=== PATIENT | male | born 1985 | race African-American/Black ===

== ENCOUNTER 2018-09-25 11:44 | Observation (INO) | payer OTHER, SELFPAY ==
[2018-09-25] MEDS ORDERED: ONDANSETRON 4 MG/2 ML VIAL ONE ×2 (12:20→13:27)
[2018-09-25] MEDS ORDERED: FAMOTIDINE 20 MG/2 ML VIAL IV ONE (12:20)
[2018-09-25] MEDS ORDERED: NA CHLORIDE 0.9% 1,000 ML ONE (12:20)
[2018-09-25 12:27] LABS: Absolute Lymphocytes (CBC) 4.3 K/uL (0.7-4.9); Absolute Neutrophil 6.3 K/uL (1.8-8.0); Hematocrit 41.8 % (39.6-49.0); Lymphocytes % 35.7 % (15.3-44.8); MPV 8.8 fL (7.6-11.3); Monocytes % 8.6 % (3.3-12.3); RBC Red Blood Cell Count 4.84 M/uL (4.33-5.43)
[2018-09-25 12:31] LABS: Protime INR 0.97
--- NOTE | 2018-09-25 12:40 | RAD REPORT ---
EXAM DESCRIPTION: RAD - Chest Single View - 09/25/2018 12:35 pm CLINICAL HISTORY: CHEST PAIN Chest pain. COMPARISON: No comparisons FINDINGS: Portable technique limits examination quality. The lungs are grossly clear. The heart is normal in size. No displaced fractures. IMPRESSION: No acute intrathoracic process suspected.
[2018-09-25 12:49] LABS: ALT/SGPT 65 U/L (12-78); AST/SGOT 37 U/L (15-37); Alkaline Phosphatase 73 U/L (45-117); BUN Blood Urea Nitrogen 19 mg/dL (7-18); Bicarbonate 26 mmol/L (21-32); Bilirubin Direct 0.1 mg/dL (0-0.2); Bilirubin Total 0.4 mg/dL (0.2-1.0); Glucose Level 99 mg/dL (74-106); Lipase 132 U/L (73-393); Magnesium 2.3 mg/dL (1.8-2.4); NT PRO-BNP 15 pg/mL (<125); Potassium 3.9 mmol/L (3.5-5.1); Protein, Total 8.2 g/dL (6.4-8.2); Sodium Level 137 mmol/L (136-145); Troponin (Emerg Dept Use Only) 0.03 ng/mL (0.0-0.045)
[2018-09-25] MEDS ORDERED: LIDOCAINE VISCOUS 2% SOLN 15 ML UDC ONE (13:07)
[2018-09-25] MEDS ORDERED: MAGNE/ALUM HYDROXD 30 ML UCUP ONE (13:07)
--- NOTE | 2018-09-25 13:24 | EKG ---
Test Date: 2018-09-25 Test Time: 12:09:03 Social Work Job Titles: HELENA MEASUREMENT RESULTS: Intervals: Rate: 70 CA: 158 QRSD: 100 QT: 380 QTc: 410 Urania: P: 20 CA: 158 QRS: 75 T: 18 INTERPRETIVE STATEMENTS: Normal sinus rhythm Nonspecific T wave abnormality Abnormal ECG No previous ECG available for comparison Electronically Signed On 09-25-18 13:23:53 DEVELOPMENT EXECUTIVE by Quincy Cervantes
[2018-09-25] MEDS ORDERED: MORPHINE 4 MG/ML SYR ONE ×2 (13:27→14:41)
[2018-09-25 14:50] LABS: Urine Blood NEGATIVE (NEG); Urine Glucose NEGATIVE (NEG); Urine Protein NEGATIVE (NEG); Urine pH 5.5 (5.0-7.0)
[2018-09-25 15:37] LABS: Barbiturates NEGATIVE (NEGATIVE); Benzodiazepines NEGATIVE (NEGATIVE); Cocaine NEGATIVE (NEGATIVE); METHAMPHETAM NEGATIVE (NEGATIVE); Methadone NEGATIVE (NEGATIVE); Opiates NEGATIVE (NEGATIVE); Phencyclidine NEGATIVE (NEGATIVE); THC Cannibis NEGATIVE (NEGATIVE)
--- NOTE | 2018-09-25 15:42 | RAD REPORT ---
EXAM DESCRIPTION: CTAbdomen Pelvis W Contrast - 09/25/2018 3:36 pm CLINICAL HISTORY: Abdominal pain. ABD PAIN COMPARISON: No comparisons TECHNIQUE: Biphasic CT imaging of the abdomen and pelvis was performed with 100 ml non-ionic IV cont rast. All CT scans are performed using dose optimization technique as appropriate and may include automated exposure control or mA/KV adjustment according to patient size. FINDINGS: The lung bases are clear. The liver, spleen, pancreas, adrenal glands and kidneys are within normal limits. No bowel obstruction, free air, free fluid or abscess. The appendix is dilated to 20 mm and contains multiple appendicoliths and fluid. Mild periappendiceal fat stranding also seen. No evidence of sig nificant lymphadenopathy. No suspicious bony findings. IMPRESSION: Acute appendicitis.
[2018-09-25] MEDS ORDERED: HYDROMORPHONE HCL 1 MG/ML INJ ONE (16:01)
[2018-09-25] MEDS ORDERED: PROMETHAZINE 25 MG/ML VIAL ONE (16:01)
--- NOTE | 2018-09-25 16:14 | EDPHYS ---
Physician Documentation [facility] Name: Isai De Dios Age: 33 yrs Sex: Male : 1985 Arrival Date: 09/25/2018 Time: 11:48 Bed 19 Private MD: ED Physician Lon Robertson HPI: 09/25 12:10 This 33 yrs old Black Male presents to ER via Ambulatory with complaints of Chest Pain, cp Abdominal Pain. 12:10 The patient or guardian reports chest pain that is located primarily in the anterior cp chest wall. 12:10 The pain does not radiate. cp 12:10 The patient presents with abdominal pain in the periumbilical area. cp 12:10 Onset: The symptoms/episode began/occurred this morning. Associated signs and symptoms: cp Pertinent positives: nausea and vomiting, Pertinent negatives: blood in stools, constipation, diarrhea, fever, testicular pain. The chest pain is described as constant. Duration: The patient or guardian reports a single episode, that is still ongoing, and worsening. Historical: - Allergies: 12:04 No Known Allergies; jl7 - Home Meds: 12:04 Vitamins [Active]; jl7 - PMHx: 12:04 None; jl7 - PSHx: 12:04 None; jl7 - Immunization history:: Adult Immunizations not up to date. - Social history:: Smoking status: Patient/guardian denies using tobacco, but has a distant history of tobacco abuse. - Ebola Screening: : No symptoms or risks identified at this time. ROS: 12:15 Constitutional: Negative for body aches, chills, fever, poor PO intake. cp 12:15 Eyes: Negative for injury, pain, redness, and discharge. cp 12:15 Cardiovascular: Positive for chest pain, Negative for edema, palpitations. 12:15 Respiratory: Negative for cough, shortness of breath, wheezing. 12:15 Abdomen/GI: Positive for abdominal pain, nausea and vomiting, Negative for diarrhea, constipation, hematemesis, black/tarry stool, rectal bleeding. 12:15 Back: Negative for pain at rest, pain with movement, radiated pain. 12:15 : Negative for urinary symptoms, flank pain, testicular pain 12:15 Skin: Negative for cellulitis, rash. 12:15 Neuro: Negative for altered mental status, headache, weakness. 12:15 All other systems are negative. Exam: 12:20 ECG was reviewed by the Attending Physician. cp 12:20 Constitutional: The patient appears alert, awake, non-toxic, well developed, well cp nourished, uncomfortable. 12:20 Head/Face: Normocephalic, atraumatic. Eyes: Pupils equal round and reactive to light, cp extra-ocular motions intact. Lids and lashes normal. Conjunctiva and sclera are non-icteric and not injected. Cornea within normal limits. Periorbital areas with no swelling, redness, or edema. ENT: Nares patent. No nasal discharge, no septal abnormalities noted. Tympanic membranes are normal and external auditory canals are clear. Oropharynx with no redness, swelling, or masses, exudates, or evidence of obstruction, uvula midline. Mucous membranes moist. Chest/axilla: Normal chest wall appearance and motion. Nontender with no deformity. No lesions are appreciated. Cardiovascular: Regular rate and rhythm with a normal S1 and S2. No gallops, murmurs, or rubs. Normal PMI, no JVD. No pulse deficits. Respiratory: Lungs have equal breath sounds bilaterally, clear to auscultation and percussion. No rales, rhonchi or wheezes noted. No increased work of breathing, no retractions or nasal flaring. 12:20 Abdomen/GI: Inspection: abdomen appears normal, Bowel sounds: active, all quadrants, Palpation: soft, in all quadrants, moderate abdominal tenderness, in the umbilical area, rebound tenderness, is not appreciated, voluntary guarding, is elicited in the umbilical area. 12:20 Back: pain, is absent, ROM is normal. 12:20 Skin: cellulitis, is not appreciated, no rash present. Vital Signs: 12:04 BP 161 / 99; Pulse 75; Resp 16 S; Pulse Ox 100% on R/A; Weight 120.2 kg (R); Height 5 jl7 ft. 11 in. (180.34 cm) (R); Pain 10/10; 13:06 BP 121 / 77; Pulse 75; Resp 18; Pulse Ox 100% on R/A; hj 13:22 BP 153 / 85; Pulse 72; Resp 18; Pulse Ox 100% on R/A; hj 14:04 BP 156 / 87; Pulse 74; Resp 18; Pulse Ox 100% on R/A; hj 14:38 BP 133 / 75; Pulse 73; Resp 18; Pulse Ox 100% on R/A; hj 15:02 BP 149 / 85; Pulse 65; Resp 18; Pulse Ox 100% on R/A; hj 16:06 BP 135 / 79; Pulse 62; Resp 18; Pulse Ox 100% on 2 lpm NC; hj 17:11 BP 153 / 90; Pulse 66; Resp 18; Pulse Ox 100% on R/A; hj 12:04 Body Mass Index 36.96 (120.20 kg, 180.34 cm) jl7 MDM: 11:53 Patient medically screened. cp 12:30 Differential diagnosis: chest wall pain, esophagitis, pancreatitis, pericarditis, cp pneumonia, appendicitis, bowel obstruction. 15:50 Data reviewed: vital signs, nurses notes, lab test result(s), radiologic studies, CT cp scan, and as a result, I will admit patient. 16:10 Physician consultation: Eduin Mai MD was called at 16:05, was contacted at 16:05, cp regarding admission, to the medical/surgical unit. patient's condition. 09/25 12:09 Order name: Basic Metabolic Panel; Complete Time: 12:55 cp 09/25 12:09 Order name: CBC with Diff; Complete Time: 12:55 cp 09/25 12:09 Order name: LFT's; Complete Time: 12:55 cp 09/25 12:09 Order name: Magnesium; Complete Time: 12:55 cp 09/25 12:09 Order name: NT PRO-BNP; Complete Time: 12:55 cp 09/25 12:09 Order name: PT-INR; Complete Time: 12:55 cp 09/25 12:09 Order name: Troponin (emerg Dept Use Only); Complete Time: 12:55 cp 09/25 12:09 Order name: Lipase; Complete Time: 12:55 cp 09/25 12:14 Order name: UDS; Complete Time: 15:46 cp 09/25 14:33 Order name: Urine Dipstick--Ancillary (enter results); Complete Time: 15:46 bd 09/25 16:50 Order name: Basic Metabolic Panel EDMS 09/25 16:50 Order name: Basic Metabolic Panel EDMS 09/25 16:50 Order name: CBC with Automated Diff EDMS 09/25 16:50 Order name: CBC with Automated Diff EDMS 09/25 12:09 Order name: XRAY Chest (1 view); Complete Time: 12:55 cp 09/25 12:56 Order name: CT Abd/Pelvis - W/Contrast: no oral contrast; Complete Time: 15:46 cp 09/25 16:50 Order name: Lipase EDMS 09/25 16:50 Order name: Lipase EDMS 09/25 16:50 Order name: Liver (Hepatic) Function EDMS 09/25 16:50 Order name: Liver (Hepatic) Function EDMS 09/25 12:09 Order name: EKG; Complete Time: 12:11 cp 09/25 12:09 Order name: Cardiac monitoring; Complete Time: 12:14 cp 09/25 12:09 Order name: EKG - Nurse/Tech; Complete Time: 12:14 cp 09/25 12:09 Order name: IV Saline Lock; Complete Time: 12:14 cp 09/25 12:09 Order name: Labs collected and sent; Complete Time: 12:14 cp 09/25 12:09 Order name: O2 Per Protocol; Complete Time: 12:14 cp 09/25 12:09 Order name: O2 Sat Monitoring; Complete Time: 12:14 cp 09/25 15:47 Order name: NPO; Complete Time: 15:49 cp 09/25 16:50 Order name: NPO EDAZ EC:20 Rate is 70 beats/min. Rhythm is regular. LA interval is normal. QRS interval is normal. cp QT interval is normal. Interpreted by me. Reviewed by me. Administered Medications: 12:09 Drug: Pepcid 20 mg Route: IVP; Site: left antecubital; hj 13:01 Follow up: Response: No adverse reaction hj 12:09 Drug: Zofran 4 mg Route: IVP; Site: left antecubital; hj 13:01 Follow up: Response: No adverse reaction hj 12:09 Drug: NS 0.9% 1000 ml Route: IV; Rate: 1 bolus; Site: left antecubital; hj 13:30 Follow up: IV Status: Completed infusion; IV Intake: 1000ml hj 12:56 Drug: GI Cocktail without - (Maalox Suspension 30 ml, Lidocaine Liquid 2 % 15 hj ml) Route: PO; 13:01 Follow up: Response: No adverse reaction hj 13:15 Drug: morphine 4 mg Route: IVP; Site: left antecubital; hj 13:23 Follow up: Response: No adverse reaction; Pain is decreased hj 13:15 Drug: Zofran 4 mg Route: IVP; Site: left antecubital; hj 13:23 Follow up: Response: No adverse reaction hj 14:33 Drug: morphine 4 mg Route: IVP; Site: left antecubital; hj 14:34 Follow up: Response: No adverse reaction hj 15:47 Drug: Dilaudid 1 mg Route: IVP; Site: left antecubital; hj 16:06 Follow up: Response: No adverse reaction hj 15:50 Not Given (Physician Discretion): Phenergan 12.5 mg IVP once cp 15:50 Drug: Phenergan 25 mg Route: IVP; Site: left antecubital; hj 16:06 Follow up: Response: No adverse reaction hj 16:12 Drug: Zosyn 3.375 grams Route: IVPB; Infused Over: 60 mins; Site: left antecubital; hj 16:18 Follow up: IV Status: Completed infusion hj Disposition: 18:15 Co-signature as Attending Physician, Lon Robertson MD. rn Disposition: 09/25/18 16:13 Hospitalization ordered by Eduin Mai for Inpatient Admission. Preliminary diagnosis is Acute appendicitis. - Bed requested for Telemetry/MedSurg (Inpatient). - Status is Inpatient Admission. hj - Condition is Stable. - Problem is new. - Symptoms have improved. UTI on Admission? No Signatures: Dispatcher [employer] EDMS Lainey Farr Lon Quinteros MD MD rn Joaquin, Henry, RN RN hj Page, Corey, PA PA cp Leal, Jahala, RN RN jl7 Corrections: (The following items were deleted from the chart) 12:13 12:13 This 33 yrs old Black Male presents to ER via Ambulatory with complaints of Chest cp Pain, Abdominal Pain. cp 17:02 16:13 Hospitalization Ordered by Eduin Mai MD for Inpatient Admission. Preliminary bd diagnosis is Acute appendicitis. Bed requested for Telemetry/MedSurg (Inpatient). Status is Inpatient Admission. Condition is Stable. Problem is new. Symptoms have improved. UTI on Admission? No. cp 17:35 17:02 09/25/2018 16:13 Hospitalization Ordered by Eduin Mai MD for Inpatient hj Admission. Preliminary diagnosis is Acute appendicitis. Bed requested for Telemetry/MedSurg (Inpatient). Status is Inpatient Admission. Condition is Stable. Problem is new. Symptoms have improved. UTI on Admission? No. bd
--- NOTE | 2018-09-25 16:14 | ER ---
Nurse's Notes [facility] Name: Isai De Dios Age: 33 yrs Sex: Male : 1985 Arrival Date: 09/25/2018 Time: 11:48 Bed 19 Private MD: Diagnosis: Acute appendicitis Presentation: 09/25 12:00 Presenting complaint: Patient states: "I took a hydroxycut and a one a day at 0300 this jl7 morning, ate lunch then about 20 minutes later my stomach started hurting real bad around my belly button area then my chest started hurting." Pt actively vomiting in triage. Pt reports he always takes the supplements, this has never happened. pt reports he has been around others who have been sick lately. Transition of care: patient was not received from another setting of care. Onset of symptoms was September 25, 2018 at 04:00. Risk Assessment: Do you want to hurt yourself or someone else? Patient reports no desire to harm self or others. Initial Sepsis Screen: Does the patient meet any 2 criteria? No. Patient's initial sepsis screen is negative. Does the patient have a suspected source of infection? No. Patient's initial sepsis screen is negative. Care prior to arrival: None. 12:00 Method Of Arrival: Ambulatory jl7 12:00 Acuity: NILA 3 jl7 Triage Assessment: 12:04 General: Appears in no apparent distress. uncomfortable, Behavior is calm, cooperative, jl7 appropriate for age. Pain: Complains of pain in left breast and umbilical area Pain currently is 10 out of 10 on a pain scale. Quality of pain is described as aching, Pain began suddenly, Is continuous. Neuro: Level of Consciousness is awake, alert, obeys commands. Cardiovascular: Patient's skin is warm and dry. Respiratory: Airway is patent Respiratory effort is even, unlabored, Respiratory pattern is regular, symmetrical. GI: Pt is actively vomiting clear fluid. 12:04 EENT: No signs and/or symptoms were reported regarding the EENT system. : No signs hj and/or symptoms were reported regarding the genitourinary system. Derm: No signs and/or symptoms reported regarding the dermatologic system. Musculoskeletal: No signs and/or symptoms reported regarding the musculoskeletal system. Historical: - Allergies: 12:04 No Known Allergies; jl7 - Home Meds: 12:04 Vitamins [Active]; jl7 - PMHx: 12:04 None; jl7 - PSHx: 12:04 None; jl7 - Immunization history:: Adult Immunizations not up to date. - Social history:: Smoking status: Patient/guardian denies using tobacco, but has a distant history of tobacco abuse. - Ebola Screening: : No symptoms or risks identified at this time. Screenin:07 Abuse screen: Denies threats or abuse. Denies injuries from another. Nutritional hj screening: No deficits noted. Tuberculosis screening: No symptoms or risk factors identified. Fall Risk None identified. Assessment: 12:08 Pain: Pain does not radiate. hj 12:55 Reassessment: Patient and/or family updated on plan of care and expected duration. Pain hj level reassessed. Patient is alert, oriented x 3, equal unlabored respirations, skin warm/dry/pink. pt complained of abd pain; 10/10; MD notified; with orders;. 13:23 Reassessment: awaiting CT;. hj 13:25 Reassessment: called imaging; pt finished contrast;. hj 14:03 Reassessment: Patient and/or family updated on plan of care and expected duration. Pain hj level reassessed. Patient is alert, oriented x 3, equal unlabored respirations, skin warm/dry/pink. awaiting CT;. 14:37 Reassessment: Patient and/or family updated on plan of care and expected duration. Pain hj level reassessed. Patient is alert, oriented x 3, equal unlabored respirations, skin warm/dry/pink. still complaining of pain 06/26; MD notified with orders;. Reassessment: called imaging; will picker tender helper pt for CT in 30 mins;. 15:29 Reassessment: wheeled to CT:. hj 15:38 Reassessment: back to room;. hj 16:12 Reassessment: Patient and/or family updated on plan of care and expected duration. Pain hj level reassessed. Dx: appendicitis; awaiting orders from PA;. 17:11 Reassessment: Patient and/or family updated on plan of care and expected duration. Pain hj level reassessed. Patient is alert, oriented x 3, equal unlabored respirations, skin warm/dry/pink. surgeon in room; for surgery but to be placed in the room first;. 17:33 Reassessment: surgery consent signed and attached to chart;. hj Vital Signs: 12:04 BP 161 / 99; Pulse 75; Resp 16 S; Pulse Ox 100% on R/A; Weight 120.2 kg (R); Height 5 jl7 ft. 11 in. (180.34 cm) (R); Pain 10/10; 13:06 BP 121 / 77; Pulse 75; Resp 18; Pulse Ox 100% on R/A; hj 13:22 BP 153 / 85; Pulse 72; Resp 18; Pulse Ox 100% on R/A; hj 14:04 BP 156 / 87; Pulse 74; Resp 18; Pulse Ox 100% on R/A; hj 14:38 BP 133 / 75; Pulse 73; Resp 18; Pulse Ox 100% on R/A; hj 15:02 BP 149 / 85; Pulse 65; Resp 18; Pulse Ox 100% on R/A; hj 16:06 BP 135 / 79; Pulse 62; Resp 18; Pulse Ox 100% on 2 lpm NC; hj 17:11 BP 153 / 90; Pulse 66; Resp 18; Pulse Ox 100% on R/A; hj 12:04 Body Mass Index 36.96 (120.20 kg, 180.34 cm) jl7 ED Course: 11:48 Patient arrived in ED. mr 11:53 Shreyas Tony PA is PHCP. cp 11:53 Lon Robertson MD is Attending Physician. cp 11:58 Eduin Broderick, ODALYS is Primary Nurse. hj 12:03 Triage completed. jl7 12:04 Arm band placed on right wrist. jl7 12:07 Initial lab(s) drawn, by oh, sent to lab. Inserted saline lock: 20 gauge in left hj antecubital area, using aseptic technique. Blood collected. 12:08 Patient has correct armband on for positive identification. Placed in gown. Bed in low hj position. Call light in reach. Side rails up X 1. phototypesetting equipment monitor on. Pulse ox on. NIBP on. 12:08 Patient maintains SpO2 saturation greater than 95% on room air. hj 12:15 EKG done, by cardiology technician. reviewed by Shreyas JEAN-BAPTISTE. at1 12:35 XRAY Chest (1 view) In Process Unspecified. EDMS 14:22 UDS Sent. 5 14:22 Urine collected: clean catch specimen, clear. mh5 15:36 CT Abd/Pelvis - W/Contrast: no oral contrast In Process Unspecified. EDMS 16:13 Eduin Mai MD is Hospitalizing Provider. cp 17:32 No provider procedures requiring assistance completed. Patient admitted, IV remains in hj place. intact. Administered Medications: 12:09 Drug: Pepcid 20 mg Route: IVP; Site: left antecubital; hj 13:01 Follow up: Response: No adverse reaction hj 12:09 Drug: Zofran 4 mg Route: IVP; Site: left antecubital; hj 13:01 Follow up: Response: No adverse reaction hj 12:09 Drug: NS 0.9% 1000 ml Route: IV; Rate: 1 bolus; Site: left antecubital; hj 13:30 Follow up: IV Status: Completed infusion; IV Intake: 1000ml hj 12:56 Drug: GI Cocktail without - (Maalox Suspension 30 ml, Lidocaine Liquid 2 % 15 hj ml) Route: PO; 13:01 Follow up: Response: No adverse reaction hj 13:15 Drug: morphine 4 mg Route: IVP; Site: left antecubital; hj 13:23 Follow up: Response: No adverse reaction; Pain is decreased hj 13:15 Drug: Zofran 4 mg Route: IVP; Site: left antecubital; hj 13:23 Follow up: Response: No adverse reaction hj 14:33 Drug: morphine 4 mg Route: IVP; Site: left antecubital; hj 14:34 Follow up: Response: No adverse reaction hj 15:47 Drug: Dilaudid 1 mg Route: IVP; Site: left antecubital; hj 16:06 Follow up: Response: No adverse reaction hj 15:50 Not Given (Physician Discretion): Phenergan 12.5 mg IVP once cp 15:50 Drug: Phenergan 25 mg Route: IVP; Site: left antecubital; hj 16:06 Follow up: Response: No adverse reaction hj 16:12 Drug: Zosyn 3.375 grams Route: IVPB; Infused Over: 60 mins; Site: left antecubital; hj 16:18 Follow up: IV Status: Completed infusion hj Intake: 13:30 IV: 1000ml; Total: 1000ml. hj Outcome: 16:13 Decision to Hospitalize by Provider. cp 17:32 Admitted to Med/surg accompanied by vanessa via wheelchair, room 218, with chart, Report solo called to ODALYS E[place] 17:32 Condition: stable 17:32 Instructed on the need for admit, Demonstrated understanding of instructions. 17:35 Patient left the ED. solo Signatures: Dispatcher [employer] KATY Cheyenne Wagoner Amanda, second mate EKG Tat1 Eduin Broderick RN RN Shreyas Marte PA PA cp [place] [id number] Franki Gibson RN RN jl7 Corrections: (The following items were deleted from the chart) 14:04 13:23 Reassessment: wheeled to CT; solo banda
[2018-09-25] MEDS ORDERED: PIPER/TAZO/NS 3.375gm 3.375 GM/100 ML BAG ONE (16:24)
[2018-09-25] MEDS ORDERED: HYDROMORPHONE HCL 1 MG/ML INJ IV PRN (16:47)
[2018-09-25] MEDS ORDERED: ONDANSETRON 4 MG/2 ML VIAL IV PRN (16:47)
[2018-09-25] MEDS ORDERED: ACETAMINOPHEN 500 MG TAB PO PRN (16:47)
[2018-09-25] MEDS: D5 0.45 NS 1,000 ML IV SCH (17:00)
[2018-09-25] MEDS: FENTANYL CITR 100 MCG/2 ML ONE ×4 (17:50→20:13)
[2018-09-25] MEDS ORDERED: Ringers Lactate 1,000 ML IV ONE ×2 (17:53→21:15)
[2018-09-25] MEDS: PIPER/TAZO/NS 3.375gm 3.375 GM/100 ML BAG IVPB SCH (18:30)
[2018-09-25] MEDS ORDERED: BUPIVACAINE 0.5% PF 10 ML VIAL ONE (20:24)
[2018-09-25] MEDS ORDERED: SUCCINYLCHOLINE 20 MG/ML (10 ML) IV ONE (20:25)
[2018-09-25] MEDS ORDERED: ROCURONIUM 50 MG/5 ML VIAL IV ONE (20:30)
[2018-09-25] MEDS ORDERED: FENTANYL CITR 250 MCG/5 ML ONE (20:30)
[2018-09-25] MEDS ORDERED: PROPOFOL 200 MG/20 ML VIAL IV ONE (20:30)
[2018-09-25] MEDS ORDERED: GLYCOPYRROLATE 0.2 MG/ML SYR ONE ×2 (20:54)
[2018-09-25] MEDS ORDERED: NEOSTIGMINE 1 MG/ML -5 ML SYRINGE ONE (21:14)
--- NOTE | 2018-09-25 21:23 | P.BOP ---
Preoperative diagnosis: acute appendicitis Postoperative diagnosis: same Primary procedure: Laparoscopic appendectomy Estimated blood loss: <10cc Specimen: [email or web address] Findings: as above Anesthesia: General Complications: None Transferred to: Recovery Room Condition: Good
[2018-09-26] MEDS: D5 0.45 NS 1,000 ML IV SCH ×3 (00:27→17:00)
[2018-09-26] MEDS: PIPER/TAZO/NS 3.375gm 3.375 GM/100 ML BAG IVPB SCH ×3 (00:28→17:00)
[2018-09-26] MEDS ORDERED: PIPER/TAZO/NS 3.375gm 3.375 GM/100 ML BAG ONE (00:31)
--- NOTE | 2018-09-26 02:47 | HP ---
Date of Admission: 09/25/2018 Diagnosis: Acute appendicitis. History Of Present Illness: This is the case of a 33-year-old patient who came to us with periumbili juan right lower quadrant pain since this morning associated with nausea and vomiting. He does not re member having pain like this before. He does not remember eating anything out of the usual. He is t rying to lose some weight recently. There is no recent traveling out of the country. There are no f amily members sick at home. The patient was seen in the ER, diagnosed with acute appendicitis on cli nical examination and radiographically, and a surgical consult for admission and surgery was done. Past Medical Problems: None. Surgical History: None. Allergies: NONE. Social History: He does not smoke. He does not drink alcohol. Medications: Multivitamins. Review of Systems: Ten points otherwise unremarkable. Family History: Noncontributory. Physical Examination: General: The patient is awake and alert. HEENT: Pupils are equal and reactive, anicteric. Neck: Supple. Chest: Clear. Abdomen: Soft and depressible. There is right lower quadrant tenderness with Rovsing sign and psoas sign positive. Rectal/pelvic: Deferred. Extremities: Good capillary refill. Laboratory Data: WBC count 12,000. CT scan, per Dr. Parmar shows acute appendicitis. Assessment: This is a 33-year-old patient who comes to us with acute appendicitis, right lower quadr ant pain intractable in right lower quadrant. Laparoscopic, possible open appendectomy was fully exp lained to the patient with benefits, alternatives, and risks including, but not limited to infection, bleeding, damage to adjacent structures, anesthesia complications, negative appendix, negative explo ration, MA, and even . He also understands this may not relieve the symptoms. He might need mo re than one surgical intervention. He understood, signed a consent, and OR was emergently called. KENNY/OWEN Voice ID: [id number]
[2018-09-26 06:05] LABS: Basophils % 0.3 % (0-1.3); Eosinophils % 0.2 % (0-4.4); Hematocrit 39.7 % (39.6-49.0); Lymphocytes % 13.2 % (15.3-44.8); MPV 8.9 fL (7.6-11.3)
[2018-09-26 06:24] LABS: ALT/SGPT 53 U/L (12-78); AST/SGOT 25 U/L (15-37); Albumin 3.3 g/dL (3.4-5.0); Alkaline Phosphatase 66 U/L (45-117); BUN Blood Urea Nitrogen 11 mg/dL (7-18); Bicarbonate 27 mmol/L (21-32); Bilirubin Direct 0.2 mg/dL (0-0.2); Bilirubin Total 0.6 mg/dL (0.2-1.0); Glucose Level 118 mg/dL (74-106); Lipase 280 U/L (73-393); Protein, Total 7.3 g/dL (6.4-8.2); Sodium Level 136 mmol/L (136-145)
--- NOTE | 2018-09-26 07:39 | OP ---
Date of Procedure: 09/25/2018 Surgeon: Eduin Mai MD Public Health Worker: None. Preoperative Diagnosis: Acute appendicitis. Postoperative Diagnosis: Acute appendicitis. Procedure: Laparoscopic appendectomy. Estimated Blood Loss: Less than 10 cc. Assessment: This is a 33-year-old patient with acute appendicitis. Fully explained the benefits, al ternatives, and risks of laparoscopic, possible open appendectomy which include but are not limited t o infection, bleeding, damage to adjacent structures, anesthesia complication, NH, and even . H e also understands this may not relieve any symptoms. He might need more than one surgical intervent ion. He understood, signed a consent. Description Of Procedure: The patient was brought to the operating room, placed in supine position. Anesthesia was done without complication. Abdominal area was prepped and draped in a sterile fashio n. Marcaine 0.5% was injected for local anesthetic, followed by sharp incision of the skin in the in fraumbilical region. Incision was carried down to fascia, which was opened under direct vision. Per itoneum was encountered, opened under direct vision. Vicryl #1 placed inside the fascia. Flaca tro car was carefully introduced. Pneumoperitoneum was obtained. I placed 2 more trocars, 5 mm each one of them under direct visualization in the suprapubic area and left lower quadrant. After that, we t ook a look at the area of the appendix, looks inflamed, asymmetrical in shape and color. The base of appendix seems to be spared from the inflammation, so we created a window in the base of the appendi x, transected that with an Endo JOHN 45 mm 3.5, and the mesoappendix with an Endo JOHN 45 mm 2.5. Appe ndix removed from the abdominal cavity using an EndoCatch from the umbilical incision. The area was inspected once again. No bowel leak, no bleeding. After irrigation and suction was done, we proceed ed to remove the trocars under direct vision, deflated pneumoperitoneum, closed the fascia with #1 Vi cryl. Irrigated subcutaneous tissue, closed that with 3-0 chromic, and skin with lucas. Sponge co unt and instrument counts were correct. The patient tolerated the procedure well. The patient was s ent to recovery in stable condition. The patient will be admitted to the hospital for IV antibiotics . HM/MODL Voice ID: [id number] Report ID: [id number]
[2018-09-26] MEDS: HYDROCODONE/APAP 7.5/325 MG TAB PO PRN ×2 (07:44→12:32)
--- NOTE | 2018-09-26 15:45 | P.DS ---
Admission Date: 09/25/18 Discharge Date: 09/26/18 Disposition: ROUTINE DISCHARGE Discharge Condition: GOOD Hospital Course: unremarkable Vital Signs/Physical Exam: Temp Pulse Resp BP Pulse Ox 97.8 F 75 18 132/67 92 09/26/18 12:00 09/26/18 12:00 09/26/18 12:00 09/26/18 12:00 09/26/18 12:00 General: Alert, In no apparent distress, Oriented x3, Cooperative HEENT: Normocephalic, EOMI Neck: Supple Cardiovascular: No edema, Normal pulses Gastrointestinal: Soft and benign Musculoskeletal: No erythema, No tenderness, No warmth Integumentary: No breakdown, No tenderness/swelling, No erythema, No warmth, No cyanosis Neurological: Normal gait, Normal speech, Normal tone Laboratory Data at Discharge: WBC 15.1 K/uL (4.3-10.9) H D 09/26/18 05:22 Hgb 13.4 g/dL (13.6-17.9) L 09/26/18 05:22 Hct 39.7 % (39.6-49.0) 09/26/18 05:22 Plt Count 257 K/uL (152-406) 09/26/18 05:22 PT 11.5 SECONDS (9.5-12.5) 09/25/18 12:10 INR 0.97 09/25/18 12:10 Sodium 136 mmol/L (136-145) 09/26/18 05:22 Potassium 4.0 mmol/L (3.5-5.1) 09/26/18 05:22 BUN 11 mg/dL (7-18) 09/26/18 05:22 Creatinine 1.12 mg/dL (0.55-1.3) 09/26/18 05:22 Glucose 118 mg/dL (74-106) H 09/26/18 05:22 Magnesium 2.3 mg/dL (1.8-2.4) 09/25/18 12:10 Total Bilirubin 0.6 mg/dL (0.2-1.0) 09/26/18 05:22 AST 25 U/L (15-37) 09/26/18 05:22 ALT 53 U/L (12-78) 09/26/18 05:22 Alkaline Phosphatase 66 U/L (45-117) 09/26/18 05:22 Lipase 280 U/L (73-393) 09/26/18 05:22 Home Medications: NK [No Home Meds] 09/26/18 Patient Discharge Instructions: keep area dry for 48h then may shower. f/u with his primary MD. PT counseled about weight loss Diet: AHA Activity: No lifting more than 10 lbs Followup: Eduin Mai MD [ACTIVE - CAN ADMIT] - 1 Week
== END 2018-09-26 17:00 | disposition home or self-care (01) ==
LOC: ER 11:44 → ERHOLD 16:45 → INTOOBSV 16:45 → 2ND 17:24
PROVIDERS: ADMIT Surgery; ATTEND Surgery
PROC: 0DTJ4ZZ Resection of Appendix, Percutaneous Endoscopic Approach (ICD-10-PCS; principal; 2018-09-25 18:15)
DX: K35.80 Unspecified acute appendicitis (principal)
CPT/HCPCS: 36415; 71045; 74177; 80048; 80076; 80307; 81003; 83690; 83735; 83880; 84484; 85025; 85610; 88304; 93005; 96361; 96374; 96375; 99285; G0378; J0330; J1170; J2405; J2543; J2550; J2704; J2710; J3010; J7030; Q9967